=== PATIENT | female | born 1950 | race Two or more races ===

== ENCOUNTER 2017-09-25 08:14 | Emergency (ER) | payer OTHER ==
[~2017-09-25] VITALS: Ht 157.5 cm; Wt 68.0 kg
[~2017-09-25 08:14] MED LIST: ECOTRIN81 MG; KETO10TA2 PO; LOSARTAN POTASS50 MG; NORFLEX100MG PO; ULTRACET PO
== END 2017-09-25 11:05 | disposition home or self-care (01) ==
LOC: ER 08:14
DX: B34.9 Viral infection, unspecified (principal); J06.9 Acute upper respiratory infection, unspecified; J11.1 Influenza due to unidentified influenza virus with other respiratory manifestations

== ENCOUNTER 2017-10-07 22:22 | Emergency (ER) | payer OTHER ==
[~2017-10-07] VITALS: Ht 160 cm; Wt 68.0 kg
== END 2017-10-08 01:59 | disposition left against medical advice (07) ==
LOC: ER 22:22
DX: Z53.20 Procedure and treatment not carried out because of patient's decision for unspecified reasons (principal)

== ENCOUNTER 2018-11-24 09:32 | Emergency (ER) | payer OTHER ==
[~2018-11-24] VITALS: Ht 157.5 cm; Wt 68.0 kg
== END 2018-11-24 15:49 | disposition home or self-care (01) ==
LOC: ER 09:32
DX: R51 Headache (principal); S00.83XS Contusion of other part of head, sequela; W01.198S Fall on same level from slipping, tripping and stumbling with subsequent striking against other object, sequela

== ENCOUNTER 2019-07-08 08:56 | Outpatient (CLI) | payer OTHER | END 2019-07-08 09:00 | disposition home or self-care (01) | LOC: RX STUDY 08:56 | DX: N82.3 Fistula of vagina to large intestine (principal) ==

== ENCOUNTER 2020-11-05 15:15 | Emergency (ER) | payer OTHER ==
[~2020-11-05] VITALS: Ht 157.5 cm; Wt 65.8 kg
== END 2020-11-05 20:45 | disposition home or self-care (01) ==
LOC: ER 15:15
DX: M54.42 Lumbago with sciatica, left side (principal)

== ENCOUNTER 2021-11-14 10:12 | Outpatient (CLI) | payer OTHER | END 2021-11-14 10:19 | disposition home or self-care (01) | LOC: MRI 10:12 | DX: R41.89 Other symptoms and signs involving cognitive functions and awareness (principal) | CPT/HCPCS: 70551 ==

== ENCOUNTER 2022-05-11 13:20 | Outpatient (CLI) | payer OTHER | END 2022-05-11 13:31 | disposition home or self-care (01) | LOC: MAMO-SONO 13:20 | DX: D48.61 Neoplasm of uncertain behavior of right breast (principal); D48.62 Neoplasm of uncertain behavior of left breast ==

== ENCOUNTER → 2025-05-28 07:11 | Outpatient (CLI) | payer OTHER | END | disposition home or self-care (01) | LOC: NUCLEAR 07:00 | PROVIDERS: ATTEND Internal Medicine Cardiovascular Disease | DX: I20.89 Other forms of angina pectoris (principal) | CPT/HCPCS: 78452; 93017; A9500 ==